=== PATIENT | female | born 1980 | race Two or more races ===

== ENCOUNTER 2016-04-20 14:41 | Emergency (ER) | payer SELFPAY ==
[~2016-04-20] VITALS: Ht 167.6 cm; Wt 104.3 kg
[~2016-04-20 14:41] MED LIST: CLON0.5T3 PO; VENL150C PO
[2016-04-20 15:16] LABS: NEG OBC UR NEG
[2016-04-20 15:17] LABS: POS OBC UR POS
[2016-04-20 15:18] LABS: BILIRUBIN,URINE NEGATIVE (NEG); GLUCOSE,URINE NEGATIVE (NEG); NITRITE,URINE NEGATIVE (NEG); PH,URINE 5.5; PROTEIN,URINE NEGATIVE (NEG-TRACE); UROBILINOGEN,URINE 0.2 mg/dL (0.2 mg/dL)
--- NOTE | 2016-04-20 15:33 | PHYS DOC ---
Past Medical History Past Medical History: Anxiety Additional Past Medical Histor: bradycardia Past Surgical History: Pacemaker, Other Additional Past Surgical Histo: pacemaker Alcohol Use: None Drug Use: None Adult General Chief Complaint Chief Complaint: VAGINAL BLEEDING [facility] This is a 35-year-old female who is concerned for vaginal bleeding in . Patient estimates she is an estimated 2 months gestation by her last menstrual period. She states this is her ninth the patient has history of 3 full term deliveries, 2 elective abortions, 3 spontaneous miscarriages. She denies any history of significant health problems. She does state for the last 10 days she's had mild bleeding that would be consistent with her menstrual cycle as well as lower abdominal cramping and pain. She denies any history of previous ectopic pregnancies. Currently she denies any significant pain and would not like anything for her symptoms. She has not yet followed up with an OB doctor for this . She has not received any care. Review of Systems Review of Systems Constitutional: Denies fever or chills [] Eyes: Denies change in visual acuity, redness, or eye pain [] HENT: Denies nasal congestion or sore throat [] Respiratory: Denies cough or shortness of breath [] Cardiovascular: No additional information not addressed in HPI [] GI: Has abdominal pain, denies nausea, denies vomiting, denies bloody stools, denies diarrhea [] : Denies dysuria or hematuria [] Musculoskeletal: Denies back pain or joint pain [] Integument: Denies rash or skin lesions [] Neurologic: Denies headache, focal weakness or sensory changes [] Endocrine: Denies polyuria or polydipsia [] Allergies Allergies Allergies Coded Allergies Type Severity Reaction Last Updated Verified No Known Drug Allergies 09/06/14 No Physical Exam Physical Exam Constitutional: Well developed, well nourished, no acute distress, non-toxic appearance. [] HENT: Normocephalic, atraumatic, bilateral external ears normal, oropharynx moist, no oral exudates, nose normal. [] Eyes: PERRLA, EOMI, conjunctiva normal, no discharge. [] Neck: Normal range of motion, no tenderness, supple, no stridor. [] Cardiovascular:Heart rate regular rhythm, no murmur [] Lungs & Thorax: Bilateral breath sounds clear to auscultation [] Abdomen: Bowel sounds normal, soft, mild suprapubic tenderness, no masses, no pulsatile masses. [] Pelvic exam: Pelvic exam reveals some blood in the vaginal canal and a slightly open cervical os, there is no active bleeding Skin: Warm, dry, no erythema, no rash. [] Back: No tenderness, no CVA tenderness. [] Extremities: No tenderness, no cyanosis, no clubbing, ROM intact, no edema. [] Neurologic: Alert and oriented X 3, normal motor function, normal sensory function, no focal deficits noted. [] Psychologic: Affect normal, judgement normal, mood normal. [] Current Patient Data Vital Signs Vital Signs Date Time Temp Pulse Resp B/P Pulse Ox O2 Delivery O2 Flow Rate FiO2 04/20/16 15:24 98.5 86 20 123/69 99 Room Air 98.5 Lab Values Laboratory Tests Test 04/20/16 15:10 04/20/16 15:49 Urine Collection Type Unknown Urine Color Yellow Urine Clarity Cloudy Urine pH 5.5 Urine Specific Jolley 1.020 Urine Protein Negativemg/dL (NEG-TRACE) Urine Glucose (UA) Negativemg/dL (NEG) Urine Ketones (Stick) Negativemg/dL (NEG) Urine Blood Large (NEG) Urine Nitrite Negative (NEG) Urine Bilirubin Negative (NEG) Urine Urobilinogen Dipstick 0.2mg/dL (0.2 mg/dL) Urine Leukocyte Esterase Negative (NEG) Urine RBC 0/HPF (0-2) Urine WBC 0/HPF (0-4) Urine Squamous Epithelial Cells Few/LPF Urine Bacteria 0/HPF (0-FEW) Urine Mucus Slight/LPF Urine Test Positive (NEG) White Blood Count 10.3x10^3/uL (4.0-11.0) Red Blood Count 4.29x10^6/uL (3.50-5.40) Hemoglobin 13.3g/dL (12.0-15.5) Hematocrit 39.8% (36.0-47.0) Mean Corpuscular Volume 93fL (79-100) Mean Corpuscular Hemoglobin 31pg (25-35) Mean Corpuscular Hemoglobin Concent 33g/dL (31-37) Red Cell Distribution Width 13.9% (11.5-14.5) Platelet Count 236x10^3/uL (140-400) Neutrophils (%) (Auto) 71% (31-73) Lymphocytes (%) (Auto) 21% (24-48) L Monocytes (%) (Auto) 7% (0-9) Eosinophils (%) (Auto) 1% (0-3) Basophils (%) (Auto) 1% (0-3) Neutrophils # (Auto) 7.3x10^3uL (1.8-7.7) Lymphocytes # (Auto) 2.1x10^3/uL (1.0-4.8) Monocytes # (Auto) 0.7x10^3/uL (0.0-1.1) Eosinophils # (Auto) 0.1x10^3/uL (0.0-0.7) Basophils # (Auto) 0.1x10^3/uL (0.0-0.2) Laboratory Tests 04/20/16 15:49 EKG EKG [] Radiology/Procedures Radiology/Procedures Transvaginal ultrasound demonstrated the following: Impression: Approximately 6 week 3 day intrauterine gestational sac without evidence of pole at this time. This could be owing to early gestation versus blighted ovum. Follow-up ultrasound and/or correlation with serial beta hCG levels could be performed to confirm viability. Course & Med Decision Making Course & Med Decision Making Pertinent Labs and Imaging studies reviewed. (See chart for details) This 35-year-old female has a physical exam that is consistent with a likely inevitable miscarriage with a slightly open cervical os and gross blood. I will obtain a serum quantitative value for this and a try to obtain a transvaginal ultrasound to rule out any ectopic or other acute abnormalities with the . Ultimate patient will be provided follow up instructions with an OB doctor next several days to have the come to a safe outcome whether that be miscarriage or delivery. As stated above, the patient is at high risk for miscarriage. Her CBC was unremarkable. Her urinalysis demonstrate a blood but no obvious sign of infection. A transvaginal ultrasound demonstrated a gestational sac at an estimated 6 weeks 3 days but no pole is identified. Interpretation believes this could be due to early gestation or blighted ovum. I discussed these findings with the patient and discussed the need for her to follow closely with OB care for this . She was very agreeable to this plan and discharged without incident. Draggilberto Disclaimer Dragon Disclaimer This electronic medical record was generated, in whole or in part, using a voice recognition dictation system. Departure Departure Impression: Primary Impression: Threatened Disposition: 01 HOME, SELF-CARE Admitting Physician: Other Condition: STABLE Referrals: NO PCP (PCP) RUSLAN PICKETT Jr, MD Patient Instructions: Threatened Miscarriage, [id number] Additional Instructions: Please follow closely in the next 2-3 days with her OB doctor to be reevaluated for your . Return to the ER if you develop any worsening of your bleeding, shortness breath, lightheadedness or dizziness, or any worsening pain. JENNIFER KIM DO Apr 20, 2016 15:33
[2016-04-20 15:37] LABS: BACTERIA,URINE 0 /HPF (0-FEW); RBC,URINE 0 /HPF (0-2); SQUAMOUS EPITHELIAL CELL,UR FEW /LPF; WBC,URINE 0 /HPF (0-4)
[2016-04-20 15:53] LABS: BASO # 0.1 x10^3/uL (0.0-0.2); BASO % 1 % (0-3); EOS % 1 % (0-3); HEMATOCRIT 39.8 % (36.0-47.0); HEMOGLOBIN 13.3 g/dL (12.0-15.5); LYMPH # 2.1 x10^3/uL (1.0-4.8); LYMPH % 21 % (24-48); MEAN CORPUSCULAR HEMOGLOBIN 31 pg (25-35); MEAN CORPUSCULAR HGB CONC 33 g/dL (31-37); MEAN CORPUSCULAR VOLUME 93 fL (79-100); MONO % 7 % (0-9); NEUT % 71 % (31-73); PLATELET COUNT 236 x10^3/uL (140-400); RED BLOOD COUNT 4.29 x10^6/uL (3.50-5.40); RED CELL DISTRIBUTION WIDTH 13.9 % (11.5-14.5); WHITE BLOOD COUNT 10.3 x10^3/uL (4.0-11.0)
[2016-04-20 16:19] VITALS: BP 113/66
--- NOTE | 2016-04-20 16:20 | RAD ---
Indication: Vaginal bleeding and passing clots. The uterus measures 8.3 x 5.5 x 5.2 cm. There is an intrauterine gestational sac containing a yolk sac measuring approximately 4 mm in size. Gestational sac mean diameter is consistent with 6 weeks 3 days gestation. No pole is identified at this time. No perigestational sac hemorrhage is detected. Adnexal evaluation demonstrates a 2.5 cm cyst of the left ovary. The right ovary is unremarkable. There is no free fluid. Impression: Approximately 6 week 3 day intrauterine gestational sac without evidence of pole at this time. This could be owing to early gestation versus blighted ovum. Follow-up ultrasound and/or correlation with serial beta hCG levels could be performed to confirm viability.
== END 2016-04-20 16:55 | disposition home or self-care (01) ==
LOC: ER 14:41
DX: O20.0 Threatened abortion (principal); O99.341 Other mental disorders complicating pregnancy, first trimester; F41.9 Anxiety disorder, unspecified; Z3A.01 Less than 8 weeks gestation of pregnancy; Z96.89 Presence of other specified functional implants
CPT/HCPCS: 36415; 76801; 81001; 81025; 84702; 85027; 86900; 86901; 99285-25